=== PATIENT | female | born 1980 | race Caucasian/White ===

== ENCOUNTER 2016-12-26 21:42 | Emergency (ER) | payer OTHER ==
[2016-12-26 23:17] VITALS: BP 167/106
== END 2016-12-27 00:39 | disposition home or self-care (01) ==
LOC: ED 21:42
DX: R07.89 Other chest pain (principal); R51 Headache; R11.10 Vomiting, unspecified; I10 Essential (primary) hypertension
CPT/HCPCS: J1885; J2270; J3490

== ENCOUNTER 2017-11-09 18:30 | Emergency (ER) | payer MEDICAID ==
[~2017-11-09] VITALS: Ht 149.9 cm; Wt 73.7 kg
[2017-11-09 19:47] VITALS: Ht 149.9 cm; Wt 73.7 kg
[2017-11-09 22:27] VITALS: BP 179/92
== END 2017-11-09 22:27 | disposition home or self-care (01) ==
LOC: ED 18:30
DX: S63.502A Unspecified sprain of left wrist, initial encounter (principal); F17.210 Nicotine dependence, cigarettes, uncomplicated; I10 Essential (primary) hypertension; Z79.899 Other long term (current) drug therapy; X50.0XXA Overexertion from strenuous movement or load, initial encounter; Y93.89 Activity, other specified; Y99.8 Other external cause status; Y92.89 Other specified places as the place of occurrence of the external cause

== ENCOUNTER 2017-11-26 18:15 | Emergency (ER) | payer MEDICAID ==
[~2017-11-26] VITALS: Ht 149.9 cm; Wt 74.8 kg
[2017-11-26 18:21] VITALS: Ht 149.9 cm; Wt 74.8 kg
[2017-11-26 21:01] VITALS: BP 169/101
== END 2017-11-26 21:02 | disposition home or self-care (01) ==
LOC: ED 18:15
DX: S56.312A Strain of extensor or abductor muscles, fascia and tendons of left thumb at forearm level, initial encounter (principal); R07.81 Pleurodynia; R03.0 Elevated blood-pressure reading, without diagnosis of hypertension; I10 Essential (primary) hypertension; W18.30XA Fall on same level, unspecified, initial encounter; Y93.E1 Activity, personal bathing and showering; Y99.8 Other external cause status; Y92.89 Other specified places as the place of occurrence of the external cause
CPT/HCPCS: J1885; Q0162